=== PATIENT | female | born 1990 | race Caucasian/White ===

== ENCOUNTER → 2018-01-24 12:34 | Outpatient (CLI) | payer MEDICAID, SELFPAY ==
[2018-01-30 11:24] LABS: Cotinine Screen Blood 1.6 ng/mL (.); Nicotine Blood None Detected (.)
--- OUTSIDE RECORDS SUMMARY | 2018-03-21 16:04 | XMS RPT_ITS | Summary of Care ---
:1990 Author Organization [facility] Address [address] [place] [address] Care Team Providers Name Role Phone No, Physician Primary Care Provider Unavailable Reason for Visit Reason Comments Cosmetic Encounter Details Date Type Department Care Team Description 09/28/2017 Office Visit [facility] Last Smith Skin aging (Primary Physicians Plastic II, Dx) Surgery [facility] [address] [place] [address] [place] [address] [phone] Social History Tobacco Use Types Packs/Day Years Used Date Never Assessed Sex Assigned at Date Recorded Not on file as of this encounter Progress Notes Jesusita Krishnan LPN - 09/28/2017 11:52 AM EDTSee scanned documentsin this encounter Plan of Treatment Upcoming Encounters Date Type Specialty Care Team Description 11/09/2017 Office Visit Plastic Surgery Last Smith II, MD [facility] [place] [address] [phone] Health Maintenance Due Date Last Done Comments TETANUS EVERY 10 YR 1990 SEQUENTIAL INFLUENZA VACCINE (#1) 2017 as of this encounter Visit Diagnoses Diagnosis Skin aging - Primary Other specified hypertrophic and atrophic condition of skin
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
== END ==
PROVIDERS: Family Provider Family Medicine; PCP Family Medicine; Referring Provider Family Medicine; Visit Provider Family Medicine
DX: Z87.891 Personal history of nicotine dependence (principal)
CPT/HCPCS: 36415; 80323

== ENCOUNTER 2024-01-27 21:06 | Emergency (ER) | payer SELFPAY ==
[2024-01-27 21:09] VITALS: BP 133/95; PULSE 164; RESP 18; TEMP 36.1; O2SAT 100; BMI 20.2
[2024-01-27 22:00] VITALS: BP 118/88; PULSE 108; RESP 18; O2SAT 97
--- NOTE | 2024-01-27 22:17 | EKG12_ITS ---
Test Reason : DYSRHYTHMIA Blood Pressure : */* mmHG Vent. Rate : 89 BPM Atrial Rate : 89 BPM P-R Int : 144 ms QRS Dur : 68 ms QT Int : 364 ms P-R-T Axes : 71 74 65 degrees QTcB Int : 442 ms Normal sinus rhythm Normal ECG Confirmed by Jason Barrientos ([id number]), assistant film editor MANISH TINAJERO ([id number]) on 01/28/2024 12:19:06 PM Referred By: Confirmed By: Jason Barrientos
[2024-01-27] MEDS: 0.9% Normal Saline (1000mL) 1,000 ML 999 ML IV (22:22)
[2024-01-27 22:29] LABS: Absolute Lymphocyte Count 1.75 X10^3/uL (0.83-4.51); Absolute Neutrophil Count 5.3 X10^3/uL (2.0-7.7); Basophil# 0.06 X10^3/uL; Basophil% 0.8 % (0-1); Eosinophil# 0.06 X10^3/uL; Eosinophils% 0.8 % (0-5); Hematocrit 43.9 % (37-47); Hemoglobin 15.9 g/dL (12.0-15.0); Lymphocyte # 1.75 X10^3/ul (0.83-4.51); Lymphocyte % 22.1 % (19-41); Mean Corp Hgb Conc 36.2 g/dL (32-36); Mean Corpuscular Hgb 28.4 pg (27.0-32.0); Mean Corpuscular Volume 78.4 fL (81-99); Mean Platelet Vol. 9.9 fl (6.2-12.0); Monocyte# 0.79 X10^3/uL; NRBC Flagged by Analyzer 0 % (0-5); Neutrophil # 5.25 X10^3/uL (2.7-7.7); Platelet Count 422 K/mm3 (150-450); RBC Distribution Width SD 33.2 fl (35.1-43.9); White Blood Count 7.9 K/mm3 (4.4-11.0)
[2024-01-27 22:30] LABS: Mucous, Urine 0 SEEN /hpf (<or=2+)
[2024-01-27 22:36] LABS: Color, Urine Yellow (Yellow); Glucose, Dipstick Normal (Normal); Ketone-Dipstick Negative (Negative); Leukocyte Esterase-Dipstick 500 /ul (Negative); Nitrite-Dipstick Negative (Negative); Occult Blood-Urine 50 /ul (Negative); Protein-Dipstick 15 mg/dl (Negative); Specific Gravity, Urine 1.005 (1.002-1.030); Urine Bilirubin Dipstick Negative (Negative); Urine Clarity Clear (Clear); Urine Urobilinogen Normal (Normal)
[2024-01-27 22:41] LABS: Alcohol, Blood (Medical)-Serum < 3.0 mg/dL
[2024-01-27 22:44] LABS: Amphetamine Urine VISTA NEGATIVE (<1000 ng/mL); Barbiturate Urine VISTA NEGATIVE (< 200 ng/mL); Benzodiazepine Urine VISTA NEGATIVE (< 200 ng/mL); Cocaine Urine VISTA NEGATIVE (< 300 ng/mL); Ecstacy Urine VISTA NEGATIVE (< 500 ng/mL); Methadone Urine VISTA NEGATIVE (< 300 ng/mL); PCP Urine VISTA NEGATIVE (< 25 ng/mL); THC Urine VISTA NEGATIVE (< 50 ng/mL); Vista UDS pH Range 7
[2024-01-27 22:47] LABS: Bacteria RARE /hpf (None Seen); Red Blood Cells-Urine 0-5 SEEN /hpf (0-5); Squamous Epithelial Cells - UA 0-5 SEEN /hpf (5-10); White Blood Cells 5-10 SEEN /hpf (0-5)
[2024-01-27 22:47] LABS: Phosphorus 2.9 mg/dL (2.5-4.9)
--- NOTE | 2024-01-27 22:49 | EX.ED.VIS.PS ---
HPI HPI - Psych History of Present Illness Chief Complaint: Mental Health Narrative Narrative: Chief complaint and HPI: Mental health concern as well as dehydration. 33-year-old transgender female status post multiple surgeries and history of bipolar disorder not on medication presents for mental health concern as well as dehydration. Patient states she recently lost her grandmother. She then recently just lost her boyfriend to suicide. Patient states for the past week she has had no desire to live. She states she has not been eating or drinking. Patient states she just wants to be with her loved ones. She endorses depressive symptoms such as fatigue, little energy, tearfulness. Patient states she would possibly overdose on Benadryl to fall asleep. She denies any homicidal ideation. She denies any visual or auditory hallucinations. Patient is very anxious and tearful during exam. Review of systems: See HPI Medications: As listed on the chart Allergies: As listed on the chart PFSH: Per chart Vital signs: As listed on the chart. Reviewed. Physical exam: Gen: A&O x3, tearful and anxious Head: Normocephalic, atraumatic Eyes: No sclera icterus, conjunctiva clear, PERRL, EOMI ENT: Dry mucous membranes Neck: Trachea midline, No JVD CV: Tachycardic, regular rhythm, no murmurs, no peripheral edema Resp: Lungs CTA BL, no w/r/c GI: Abd soft, non-distended, non-tender, no r/r/g Musc: Full ROM, no deformity Skin: Warm, dry Neuro: Alert, oriented, grossly intact, sensation intact Psych: Tearful, anxious PFS PFS Medical History (Updated 01/27/24 @ 21:44 by Khushi Cole) Bipolar 1 disorder Home Medications ?Medication ?Instructions ?Recorded ?Last Taken ?Type NK 01/27/24 Unknown History Allergy/AdvReac Type Severity Reaction Status Date / Time No Known Allergies Allergy Verified 01/27/24 21:10 Surgical History (Updated 01/27/24 @ 21:44 by Khushi Cole) Status post gender reassignment surgery Social History Smoking Status: Never smoker EXAM Physical Exam Const Vital Signs: 01/27/24 21:09 01/27/24 22:00 Temperature 97 F L Temperature Source Temporal Pulse Rate 164 H 108 H Respiratory Rate 18 18 Blood Pressure 133/95 H 118/88 H Blood Pressure Mean 107 97 Pulse Ox 100 97 MDM MDM MDM Narrative Medical decision making narrative: 33-year-old transgender female status post multiple surgeries and history of bipolar disorder not on medication presents for mental health concern as well as dehydration. Patient states that she was diagnosed with bipolar disorder and used to be on Lamictal. She does not take this now. Patient endorses suicidal ideation. She is not been taking care of basic needs such as eating and drinking. Due to these concerns, patient was made aware that she will be pink slipped for psychiatric evaluation. She confirmed understanding. Patient given Ativan for anxiety. Differential diagnosis includes but is not limited to depressive disorder, adjustment disorder, grieving, bipolar disorder, dehydration, electrolyte abnormality, thyroid disease. NS bolus ordered as patient has dry mucous membranes. Laboratory workup ordered. CBC without leukocytosis. Patient is hemoconcentrated with a hemoglobin of 15.9, this is consistent with her clinical dehydration. CMP without CHELSEA. Patient does have mild hyponatremia at 3.3. P.o. potassium ordered. Magnesium and phosphorus levels unremarkable. CPK unremarkable. UA negative for UTI. Urine drug screen negative. Alcohol negative. TSH is elevated at 4.3. Will get free T4. Free T4 elevated at 2.5. Given this finding, hospitalist Dr. Kerr was consulted and patient was discussed. Recommendation and plan is to repeat thyroid function test outpatient and follow-up with endocrinology. Patient medically cleared for psychiatric evaluation and placement. Patient requesting nicotine patch. This was ordered. At this point in time we are awaiting mental health evaluation. Patient signed out to night physician. I did place follow-up for endocrinology as well as outpatient labs for thyroid studies. Impression: 1. Suicidal ideation 2. Depression 3. History of bipolar not on medication 4. Dehydration 5. Elevated thyroid function Lab Data Labs: Laboratory Results - last 24 hr 01/27/24 01/27/24 21:25 21:45 WBC 7.9 RBC 5.60 H Hgb 15.9 H Hct 43.9 MCV 78.4 L MCH 28.4 MCHC 36.2 H RDW Std Deviation 33.2 L RDW Coeff of Donald 12.0 Plt Count 422 MPV 9.9 Immature Gran % (Auto) 0.300 Neut % (Auto) 66.0 Lymph % (Auto) 22.1 [place] % (Auto) 10.0 Eos % (Auto) 0.8 Baso % (Auto) 0.8 Absolute Neuts (auto) 5.3 Absolute Lymphs (auto) 1.75 Nucleated RBC % 0 Sodium 140 Potassium 3.3 L Chloride 106 Carbon Dioxide 23.0 Anion Gap 11 BUN 5 L Creatinine 0.97 Estim Creat Clear Calc 86.81 Est GFR (MDRD) Af Amer 85 Est GFR (MDRD) Non-Af 70 BUN/Creatinine Ratio 5.2 L Glucose 107 H Calcium 9.6 Phosphorus 2.9 Magnesium 1.8 Total Bilirubin 0.60 AST 12 L ALT 19 Alkaline Phosphatase 119 H Total Creatine Kinase 39 Total Protein 7.8 Albumin 4.5 Globulin 3.3 Albumin/Globulin Ratio 1.4 TSH 4.300 H Urine Color Yellow Urine Clarity Clear Urine pH 7.0 Ur Specific [place] 1.005 Urine Protein 15 H Urine Glucose (UA) Normal Urine Ketones Negative Urine Occult Blood 50 H Urine Nitrite Negative Urine Bilirubin Negative Urine Urobilinogen Normal Ur Leukocyte Esterase 500 H Urine RBC 0-5 SEEN Urine WBC 5-10 SEEN Ur Squamous Epith Cells 0-5 SEEN Urine Bacteria RARE Urine Mucus 0 SEEN Urine Opiates Screen NEGATIVE Urine Methadone Screen NEGATIVE Ur Barbiturates Screen NEGATIVE Ur Phencyclidine Scrn NEGATIVE Ur Amphetamines Screen NEGATIVE MDMA (Ecstasy) Screen NEGATIVE U Benzodiazepines Scrn NEGATIVE Urine Cocaine Screen NEGATIVE U Cannabinoids Screen NEGATIVE Ur Drug Screen Comment Ethyl Alcohol < 3.0 Discharge Plan Triage Chief Complaint: Mental Health ED Provider: Sae Bauman Dx/Rx/DC Orders Primary Care Provider: Solitario Marte Referrals: Solitario Marte MD [Primary Care Provider] - Print Language: Lithuanian
[2024-01-27 22:54] LABS: ALB/GLOB Ratio 1.4 RATIO (0.9-2.4); AST(SGOT) 12 U/L (15-37); Alanine Aminotransfer ALT/SGPT 19 U/L (13-56); Albumin, Serum 4.5 g/dL (3.2-5.0); Alkaline Phosphatase 119 U/L (45-117); Anion Gap 11 (5-15); BUN 5 mg/dL (7-18); BUN/Creat Ratio 5.2 RATIO (10-20); CPK Total, Creatine Kinase 39 U/L (26-192); Calcium,Total 9.6 mg/dL (8.5-10.1); Chloride 106 mmol/L (98-107); Creatinine, Serum 0.97 mg/dL (0.55-1.02); EST Glomerular Filtration Rate 70 mL/min (>60); Est Glom Filt Rate - Afr Amer 85 mL/min (>60); Estimated Creatinine Clearance 86.81 ml/min; Globulin 3.3 g/dL (2.2-4.2); Glucose 107 mg/dL (74-106); Magnesium 1.8 mg/dL (1.6-2.6); Potassium 3.3 mmol/L (3.5-5.1); Protein, Total 7.8 g/dL (6.4-8.2); Sodium Level 140 mmol/L (136-145)
[2024-01-27] MEDS: LORazepam 2 MG/ML Syringe 1 MG IV (22:55)
[2024-01-27 23:00] VITALS: BP 100/81; PULSE 91; RESP 9; O2SAT 93
[2024-01-27 23:26] LABS: T4 Free Direct 2.05 ng/dL (0.76-1.46)
[2024-01-27] MEDS: Potassium Chloride Oral Soln 20 MEQ/15 ML UDC 40 MEQ PO (23:30)
[2024-01-28] VITALS: BP 106/88; PULSE 98; RESP 18; O2SAT 97
[2024-01-28 01:00] VITALS: BP 103/74; PULSE 88; RESP 22; O2SAT 95
[2024-01-28 02:00] VITALS: BP 98/72; PULSE 81; RESP 16; O2SAT 94
[2024-01-28] MEDS: LORazepam 2 MG/ML Syringe 1 MG IV (03:16)
--- NOTE | 2024-01-28 04:39 | ED.RN ---
PT STATED TO THIS NURSE SHE WAS GOING TO LEAVE AND REFUSED TO BE TRANSPORTED. LENGTHY CONVERSATION HAD ABOUT PINK SLIP AND REPERCUSSIONS OF TRYING TO LEAVE. PT VERBALIZED UNDERSTANDING BUT STATED NEXT TIME SHE NEEDS HELP SHE WILL NOT ASK FOR IT DUE TO BEING PINK SLIPPED AND PLACED AT A FACILITY. PT REQUESTED MEDICATION FOR SLEEP, ORDER OBTAINED FROM DR RAMIRES AND ADMINISTERED.
--- NOTE | 2024-01-28 08:14 | CM.ED ---
Social Work SW contacted [facility] to determine status of placement. [facility] called back and informed that patient is on the waiting list for [facility], they are having their discharge meeting this morning and will let Crisis know when they will have an open bed. [facility] did say that patient is at the top of their waiting list. EKG was requested and sent to [facility] at [phone]. Plan: inpatient hospitalization pending open bed DELLA Tafoya, COLOR ARTIST
[2024-01-28 10:00] VITALS: BP 99/79; PULSE 93; RESP 15; O2SAT 99
--- NOTE | 2024-01-28 11:26 | CM.ED ---
Social Work Crisis called this SW to let them know that [facility] confirmed that patient would be transferring today but they did not have a time yet. Roseanna Judd, HOSIERY KNITTER, CHRONOMETER ASSEMBLER AND ADJUSTER
--- NOTE | 2024-01-28 12:17 | ED.RN ---
SHIKHA WAS CONCERNED THE PT WAS GOING TO TRY TO RUN FROM ER. STATED PT SAID SHE WAS GOING TO LEAVE AMA. THIS NURSE WENT IN AND AGAIN EXPLAINED THE PROCESS FOR TRANSFER AND WHAT THE PINK SLIP MEANS. HRO WAS AT THE DOORWAY TO SHOW PT THAT TRYING TO RUN WAS NOT GOING TO CHANGE THE OUTCOME BUT ONLY MAKE THE SITUATION WORSE FOR HER. PT VERBALIZED UNDERSTANDING
[2024-01-28 14:00] VITALS: BP 99/71; PULSE 78; RESP 16; TEMP 36.8; O2SAT 99
--- NOTE | 2024-01-28 16:39 | ED.RN ---
Pt. aunt Danette picked up patient belongings.
== END 2024-01-28 14:57 ==
PROVIDERS: Emergency Provider Surgery; PCP Family Medicine; Visit Provider Surgery
DX: R45.851 Suicidal ideations (principal); F32.A Depression, unspecified; E86.0 Dehydration
CPT/HCPCS: 80053; 80307; 81001; 82077; 82550; 83735; 84100; 84439; 84443; 85025; 93005; 96361; 96374; 96376; 99285; A4216